=== PATIENT | male | born 1945 | race Hispanic/Latino ===

== ENCOUNTER → 2019-01-04 | Outpatient (CLI) | payer OTHER ==
[~2019-01-04] MED LIST: ASPI-555 PO; HUMLIS7525 SQ; LISI-613 PO; METF-444 PO; PRAV40TA3 PO
== END | disposition home or self-care (01) ==
LOC: RAH 09:54
PROVIDERS: ATTEND Internal Medicine Critical Care Medicine
DX: N28.1 Cyst of kidney, acquired (principal)
CPT/HCPCS: 76700

== ENCOUNTER → 2019-01-14 | Outpatient (CLI) | payer OTHER | END | disposition home or self-care (01) | LOC: RAH 09:21 | PROVIDERS: ATTEND Internal Medicine Critical Care Medicine | DX: K40.20 Bilateral inguinal hernia, without obstruction or gangrene, not specified as recurrent (principal); K44.9 Diaphragmatic hernia without obstruction or gangrene; K59.00 Constipation, unspecified; K57.30 Diverticulosis of large intestine without perforation or abscess without bleeding; N28.1 Cyst of kidney, acquired; K42.9 Umbilical hernia without obstruction or gangrene; I70.0 Atherosclerosis of aorta; M47.814 Spondylosis without myelopathy or radiculopathy, thoracic region | CPT/HCPCS: 74176 ==